=== PATIENT | male | born 1960 | race Caucasian/White ===

== ENCOUNTER 2018-01-10 19:29 | Emergency (ER) | payer OTHER ==
[~2018-01-10] VITALS: Ht 177.8 cm; Wt 63.5 kg
[2018-01-10] MEDS ORDERED: LABETALOL HCL 100 MG/20 ML VIAL IV ONE (20:30)
[2018-01-10] MEDS ORDERED: ONDANSETRON 4 MG/2 ML VIAL IV ONE (20:30)
[2018-01-10] MEDS ORDERED: PANTOPRAZOLE SODIUM 40 MG VIAL IV ONE (20:30)
[2018-01-10] MEDS ORDERED: MORPHINE SULFATE 2 MG/1 ML DISP.SYRIN IV ONE (20:30)
[2018-01-10 20:36] LABS: BASOPHILS # (AUTO) 0.1 K/uL (0.0-8.0); BASOPHILS % (AUTO) 0.8 % (0.0-2.0); EOSINOPHILS % (AUTO) 0.1 % (0.0-7.0); HEMATOCRIT 45.7 % (36.7-47.1); HEMOGLOBIN 15.5 g/dL (12.5-16.3); LYMPHOCYTES # (AUTO) 0.8 K/uL (20.0-40.0); LYMPHOCYTES % (AUTO) 7.5 % (20.5-51.5); MEAN CORPUSCULAR HEMOGLOBIN 29.8 uug (23.8-33.4); MEAN CORPUSCULAR HGB CONC 34 g/dL (32.5-36.3); MEAN CORPUSCULAR VOLUME 87.9 fL (73.0-96.2); MONOCYTES # (AUTO) 0.5 K/uL (2.0-10.0); MONOCYTES % (AUTO) 4.2 % (0.0-11.0); NEUTROPHILS # (AUTO) 9.8 K/uL (1.8-8.9); NEUTROPHILS % (AUTO) 87.4 % (38.5-71.5); PLATELET COUNT (AUTO) 469 K/uL (152-348); WHITE BLOOD COUNT (AUTO) 11.2 K/uL (3.6-10.2)
[2018-01-10] MEDS ORDERED: PANTOPRAZOLE SODIUM 40 MG VIAL ONE (20:36)
[2018-01-10] MEDS ORDERED: ONDANSETRON 4 MG/2 ML VIAL ONE (20:36)
[2018-01-10] MEDS ORDERED: LABETALOL HCL 100 MG/20 ML VIAL ONE (20:36)
[2018-01-10] MEDS ORDERED: MORPHINE SULFATE 4 MG/1 ML DISP.SYRIN ONE (20:36)
[2018-01-10 20:53] LABS: BILIRUBIN,DIRECT 0.1 mg/dL (0.0-0.2); BILIRUBIN,TOTAL 0.5 mg/dL (0.2-1.0); CREATININE 1.2 mg/dL (0.6-1.3); POTASSIUM 3.6 mmol/L (3.5-5.1); TOTAL PROTEIN, SERUM 8.2 g/dL (6.4-8.2)
[2018-01-10 20:57] LABS: ETHANOL < 3 MG/DL (0-0)
[2018-01-10] MEDS ORDERED: SWABABLE VALVE TRANSFER SET EA MC ONE (21:07)
[2018-01-10] MEDS ORDERED: IOHEXOL 350 100 ML INFUS..BTL ONE (21:07)
[2018-01-10] MEDS ORDERED: NORMAL SALINE FLUSH 10 ML DISP.SYRIN ONE (21:07)
[2018-01-10] MEDS ORDERED: IV NORMAL SALINE 250 ML IV ONE (21:07)
--- NOTE | 2018-01-10 21:10 | NUR ---
PT IN ROUTE TO CT FOR CTA IN [facility] WITH TRANSPORTER
--- NOTE | 2018-01-10 21:45 | NUR ---
PT RETURNS FROM CT IN [facility] WITH TRANSPORTER
--- NOTE | 2018-01-10 22:50 | NUR ---
Patient discharged to home in stable conditon. Patient reported being pain free prior to discharge. Written and verbal after care instructions given. Patient verbalizes understanding of instructions. Patient able to ambulate unassisted with a steady gait. Patient left with all personal belongings.
[2018-01-10 23:01] VITALS: BP 124/84
== END 2018-01-10 22:50 | disposition home or self-care (01) ==
LOC: ER 19:32
DX: I10 Essential (primary) hypertension (principal); R10.84 Generalized abdominal pain; R07.9 Chest pain, unspecified
CPT/HCPCS: 36415; 70030-TC; 71045; 71275; 83690; 85025; 85730; 86850; 86900; 86901; 93005; A4663; C9113; G0480; J2270; J2405; J3490; J7030; J7050; Q9967

== ENCOUNTER 2022-07-24 23:55 | Emergency (ER) | payer MEDICAID, OTHER ==
[~2022-07-24] VITALS: Ht 154.9 cm; Wt 70.3 kg
[2022-07-25] MEDS ORDERED: ONDANSETRON ODT 4 MG TAB.RAPDIS SL ONE
[2022-07-25] MEDS ORDERED: OXYCODONE/APAP 5-325 MG TABLET PO ONE
[2022-07-25] MEDS ORDERED: ONDANSETRON ODT 4 MG TAB.RAPDIS ONE (00:07)
[2022-07-25] MEDS ORDERED: OXYCODONE/APAP 5-325 MG TABLET ONE (00:07)
[2022-07-25] MEDS ORDERED: HYDR-4209 PO (00:48)
[2022-07-25 06:38] VITALS: BP 138/87
== END 2022-07-25 06:31 | disposition home or self-care (01) ==
LOC: ER 23:58
DX: S93.401A Sprain of unspecified ligament of right ankle, initial encounter (principal); W18.40XA Slipping, tripping and stumbling without falling, unspecified, initial encounter; Y93.89 Activity, other specified; Y92.480 Sidewalk as the place of occurrence of the external cause; Z59.00 Homelessness unspecified; I10 Essential (primary) hypertension; E11.9 Type 2 diabetes mellitus without complications; F20.9 Schizophrenia, unspecified; Z91.14 Patient's other noncompliance with medication regimen; F17.210 Nicotine dependence, cigarettes, uncomplicated
CPT/HCPCS: 73610; A4663; Q0162